=== PATIENT | male | born 1990 | race Two or more races ===

== ENCOUNTER 2016-05-03 11:10 | Emergency (ER) | payer OTHER ==
[2016-05-03] MEDS ORDERED: IBUPROFEN 600 MG TABLET ONE (11:49)
[2016-05-03] MEDS ORDERED: SODIUM CHLORIDE 0.9% 1,000 ML ONE (11:49)
[2016-05-03 12:24] LABS: ABSOLUTE NEUTROPHIL COUNT 3.8 K/mm3 (1.8-7.7); BASO # 0.1 K/mm3 (0.0-0.2); BASO % 0.8 % (0.2-1.0); EOS # 0.2 (0.0-0.5); EOS % 2.1 % (0.9-2.9); HEMATOCRIT 43.8 % (32.0-52.0); HEMOGLOBIN 14.2 gm/l (14.0-18.0); IMM NEUT% 0.3 % (0-1); LYMPH # 2.2 (1.0-4.8); LYMPH % 29.4 % (15-45); MEAN CELL VOLUME 86.1 fl (80.0-94.0); MEAN CORPUSCULAR HEMOGLOBIN 27.9 pg (27.0-31.0); MEAN CORPUSCULAR HGB CONC 32.4 g/dl (33.0-37.0); MEAN PLATELET VOLUME 11.4 fl (7.4-10.4); MONO # 1.1 (0.0-0.8); MONO % 15.5 % (4-12); NEUT % 51.9 % (43-75); PLATELET COUNT 224 K/mm3 (130-400); RED CELL DISTRIBUTION WIDTH 13.4 % (11.5-14.5)
[2016-05-03] MEDS ORDERED: CEFTRIAXONE SODIUM 1 G VIAL ONE (12:34)
[2016-05-03] MEDS ORDERED: SODIUM CHLORIDE 0.9% 100 ML IV ONE (12:34)
[2016-05-03 12:35] LABS: ACETAMINOPHEN < 10 ug/ml; ALB/GLOB RATIO 1.2 (>1.0); ALBUMIN 3.9 gm/dL (3.5-5.7); ALT/SGPT 22 U/L (7-52); BLOOD UREA NITROGEN 13 mg/dL (7-25); BUN/CREATININE RATIO 14 (6-20); CALCIUM 8.9 mg/dL (8.6-10.3); GLOMERULAR FILTRATION RATE 103 mL/min (60-116); MAGNESIUM 2.1 mg/dL (1.9-2.7)
--- NOTE | 2016-05-03 12:44 | RAD ---
CHEST - 2 VIEWS COMPARISON: Chest 2 views, 04/16/2016 HISTORY: Fever. Recently diagnosed with influenza and pneumonia and placed on a Z-Yury (04/22/2016) without improvement. Shortness of breath, neck pain, headache, and global myalgias. FINDINGS: Views: Frontal and lateral chest Lungs: Normal Heart and vessels: Normal Trachea and bronchi: Normal Mediastinum and bing: Normal Costophrenic sulci: Normal Chest wall and bones: Normal. Upper abdomen: Normal. IMPRESSION: Negative 2 view chest.
[2016-05-03 12:50] LABS: SALICYLATE < 5 mg/dl (0-30)
[2016-05-03 12:50] LABS: URINE BILIRUBIN NEGATIVE (NEGATIVE); URINE BLOOD NEGATIVE (NEGATIVE); URINE GLUCOSE (UA) NEGATIVE (NEGATIVE); URINE LEUKOCYTE ESTERASE NEGATIVE (NEGATIVE); URINE NITRITE NEGATIVE (NEGATIVE); URINE PROTEIN NEGATIVE (NEGATIVE); URINE UROBILINOGEN NORMAL (0-1 mg/dl)
[2016-05-03 12:51] LABS: URINE APPEARANCE CLEAR; URINE COLOR YELLOW
[2016-05-03] MEDS ORDERED: VANCOMYCIN HCL 2.5 G in SODIUM CHLORIDE 0.9% 500 ML IV ONE (13:00)
[2016-05-03 13:04] LABS: AMPHETAMINES/METHAMPHETAMINES NEGATIVE (NEGATIVE); COCAINE NEGATIVE (NEGATIVE); MARIJUANA NEGATIVE (NEGATIVE); METHADONE NEGATIVE (NEGATIVE); OPIATES NEGATIVE (NEGATIVE); TRICYCLIC ANTIDEPRESSANTS NEGATIVE (NEGATIVE)
[2016-05-03 14:12] LABS: VENOUS BLOOD GAS BASE EXCESS -3.1 mmol/L (-2.0-2.0); VENOUS BLOOD GAS HCO3 22.3 mmol/L (22.0-27.0)
== END 2016-05-03 17:57 | disposition short-term general hospital (02) ==
LOC: ED 11:10
DX: R41.82 Altered mental status, unspecified (principal); R51 Headache; R50.9 Fever, unspecified; R00.0 Tachycardia, unspecified; R06.02 Shortness of breath
CPT/HCPCS: 83605; 80307 ×2; 82140; 82803; 85025; 87040 ×2; 80305; 80053; 83735; 85730; 81003; 71020; 87804; 99285 ×2; 96361 ×2; 96365; 96367 ×2; 82962; 93005; A9270; J0696; J7040; J7030; J7050; J3370

== ENCOUNTER 2016-06-30 13:36 | Emergency (ER) | payer OTHER ==
[2016-06-30] MEDS ORDERED: PREDNISONE 20 MG TABLET ONE (16:34)
[2016-06-30] MEDS ORDERED: ALBUTEROL/IPRATROPIUM 2.5/0.5 MG 3 ML/EACH DOSE ONE (16:39)
--- NOTE | 2016-06-30 17:01 | RAD ---
CHEST - 2 VIEWS COMPARISON: Chest 2 views, 05/03/2016 HISTORY: Upper respiratory infection. FINDINGS: Views: Frontal and lateral chest Lungs: Normal Heart and vessels: Normal Trachea and bronchi: Normal Mediastinum and bing: Normal Costophrenic sulci: Normal Chest wall and bones: Normal. Upper abdomen: Normal. IMPRESSION: Negative 2 view chest.
== END 2016-06-30 17:20 | disposition home or self-care (01) ==
LOC: ED 13:36
DX: J45.909 Unspecified asthma, uncomplicated (principal); F17.210 Nicotine dependence, cigarettes, uncomplicated
CPT/HCPCS: 71020; 94640; 99283 ×2; J7512